=== PATIENT | male | born 2000 | race Caucasian/White ===

== ENCOUNTER 2024-08-19 09:38 | Emergency (ER) | payer OTHER ==
[~2024-08-19] VITALS: Ht 175.3 cm; Wt 80.2 kg
[2024-08-19 09:38] VITALS: TEMP 98.1
[2024-08-19 10:31] LABS: BASOPHILS # (AUTO) 0.1 X10'3 (0-0.2); BASOPHILS % (AUTO) 0.4 % (0-1); EOSINOPHILS # (AUTO) 0.7 X10'3 (0-0.9); EOSINOPHILS % (AUTO) 5.7 % (0-6); HEMATOCRIT 44.5 % (42.0-52.0); HEMOGLOBIN 14.8 g/dl (14.0-17.9); LYMPHOCYTES # (AUTO) 0.5 X10'3 (1.1-4.8); LYMPHOCYTES % (AUTO) 3.8 % (21-51); MEAN CORPUSCULAR HEMOGLOBIN 27.9 PG (27.0-31.0); MEAN CORPUSCULAR HGB CONC 33.2 g/dL (33.0-36.5); MEAN PLATELET VOLUME 9.1 FL (7.4-10.4); MONOCYTES # (AUTO) 0.7 X10'3 (0-0.9); MONOCYTES % (AUTO) 5.5 % (2-12); NEUTROPHILS # (AUTO) 11.1 X10'3 (1.8-7.7); NEUTROPHILS % (AUTO) 84.6 % (42-75); PLATELET COUNT 263 X10'3 (140-440); RED CELL DISTRIBUTION WIDTH 13.3 % (11.5-14.5); WHITE BLOOD COUNT 13.1 X10'3 (4.5-11.0)
--- NOTE | 2024-08-19 10:32 | Physician Documentation ---
History of Present Illness ~ Chief Complaint: Rash Stated Complaint: RASH Time Seen by MD: 09:54 HPI 24-year-old male presents to the ED after recently being seen at the [place] [facility] for a rash that he developed oral last 3 days. 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 Started on his arms and then spread to his legs. He was at the [place] [facility] did receive a shot of Kenalog and a prescription for prednisone 20 mg daily states that the steroids have not helped his symptoms he says actually they seem to be making things worse. That the rash is painful not itchy and has begun to weep on his lower extremities. reports that it is burning in nature Day of Onset: Aug 19, 2024 Medication Reconciliation Allergies: Coded Allergies: No Known Allergies (Unverified , 08/19/24) Scheduled Hydrocortisone/Aloe Vera (Cortizone-10 with Aloe 1% Crm), 1 APPLIC TOP TID Review of Systems All Other Systems at this time: Reviewed and Negative ROS As stated above in the HPI, otherwise all systems are reviewed and negative. Physical Exam Vital Signs: Temperature: 98.1, Source: Oral, Heart Rate: 74, Respiratory Rate: 16, BP: 128/82, Pulse Oximetry: 100, Weight: 80.200 Oxygen Flow Rate: 0 Physical Exam General: Alert, no apparent distress. Respiratory: Lungs clear, no respiratory distress. Extremities: Normal range of motion, no deformity. lower Extremities have circumferential erythema with developing bullous rash upper extremities have more diffuse erythema only on the posterior aspect of the forearms Neurologic: Oriented x4. Psychiatric: Normal mood and affect. Skin: Normal color, warm and dry. No edema, no ecchymosis. Progress Results/Orders Results/Orders Completed Orders - PRASAD COYLE NP Cbc/Diff (08/19/24 10:14) BMP (08/19/24 10:14) ESR (08/19/24 10:14) Hydrocortisone 1% Cream (Hydrocortisone (08/19/24 10:55) Medications Received in ER Medications (Trade) Dose Ordered Sig/Neeta Route PRN Reason Start Time Stop Time Status Last Admin Dose Admin (hydrocortisone 1% cream) 1 applic NOW ONCE TP 08/19/24 10:55 08/19/24 10:56 DC 6/14/25 11:23 1 APPLIC Vital Signs 08/19/24 08/19/24 08/19/24 09:38 12:18 12:19 Temp 98.1 Pulse 74 65 66 Resp 16 16 18 B/P (MAP) 128/82 124/77 (93) 127/87 Pulse Ox 100 98 98 O2 Flow Rate 0 Laboratory Tests Test 08/19/24 10:22 White Blood Count 13.1 H Red Blood Count 5.30 Hemoglobin 14.8 Hematocrit 44.5 Mean Corpuscular Volume 84.0 Mean Corpuscular Hemoglobin 27.9 Mean Corpuscular Hemoglobin Concent 33.2 Red Cell Distribution Width 13.3 Platelet Count 263 Mean Platelet Volume 9.1 Neutrophils (%) (Auto) 84.6 H Lymphocytes (%) (Auto) 3.8 L Monocytes (%) (Auto) 5.5 Eosinophils (%) (Auto) 5.7 Basophils (%) (Auto) 0.4 Neutrophils # (Auto) 11.1 H Lymphocytes # (Auto) 0.5 L Monocytes # (Auto) 0.7 Eosinophils # (Auto) 0.7 Basophils # (Auto) 0.1 CBC Comment Erythrocyte Sedimentation Rate 3 Sodium Level 143 Potassium Level 4.4 Chloride Level 107 Carbon Dioxide Level 32.5 H Anion Gap 4 L Blood Urea Nitrogen 14 Creatinine 1.17 H Estimated GFR/1.73 m2 75 BUN/Creatinine Ratio 12.0 Glucose Level 104 Calcium Level 8.7 Albumin 3.4 Chemistry Comments Medical Decision Making Findings Initially, I was suspecting contact dermatitis based on patient's presentation and history. Upper upon further evaluation I am currently suspecting of 5 to follow dermatitis secondary to the patient's job description were he is in the [place] and often slides down hills. That is some point that he came in contact with had a photo reaction causing his symptoms. Treatment for this is hydrocortisone cream 1% and cold compresses Differential Dx:Considerations: Include: Abscess, AIDS/HIV, Anthrax (cutaneous), Atopic dermatitis, Candidiasis, Contact dermatitis, Drug reaction, Erythema multiforme, Erysipelas, Gangrene, Herpes zoster, Herpes simplex, Hidradenitis suppurativa, Impetigo, Intertrigo, Lymes disease, Molluscum contagiosum, Osteomyelitis, Pediculosis, Pityriasis rosea, Psoriaisis, RMSF, Ro sacea, Scabies, Scarlet fever, Tinea, Urticaria, Varicella, Viral exanthema, Other Departure Disposition: HOME / SELF CARE / HOMELESS Impression: Primary Impression: Skin irritation Additional Impression: Phytophotodermatitis Condition: Stable Discharge Instructions: Contact Dermatitis, [id number] Additional Instructions: Utilize the hydrocortisone cream and cold compresses as your symptoms resolve Referrals: NO PRIMARY CARE PROVIDER (PCP) Prescriptions Hydrocortisone/Aloe Vera (Cortizone-10 with Aloe 1% Crm) 1 % Cream..g. 1 APPLIC TOP TID for rash for 10 Days, #1 TUBE Prov: PRASAD COYLE NP 08/19/24 Education Educated: Patient Educated regarding: diagnosis Signature Scribe Signature: m Attestation: Scribed for Prasad Coyle Fur Joiner by Prasad Diaz NP . 08/19/24 18:21 PRASAD COYLE NP Aug 19, 2024 10:32
[2024-08-19 10:43] LABS: ALBUMIN 3.4 G/DL (3.4-5.0); ANION GAP 4 (8-16); BLOOD UREA NITROGEN 14 MG/DL (7-18); CALCIUM 8.7 MG/DL (8.5-10.1); CHLORIDE 107 MMOL/L (99-107); CREATININE 1.17 MG/DL (0.60-1.10); GLUCOSE 104 MG/DL (70-104); POTASSIUM 4.4 MMOL/L (3.5-5.1); SODIUM 143 MMOL/L (135-145); TOTAL CARBON DIOXIDE 32.5 MMOL/L (24-32); eCRCL 96 ML/MIN; eGFR 75 ML/MIN
[2024-08-19] MEDS: hydrocortisone 1% cream 28gm TP ONE (11:23)
[2024-08-19] MEDS ORDERED: HYDR56CR TOP (12:10)
[2024-08-19 12:19] VITALS: BP 127/87; PULSE 66; RESP 18; O2SAT 98
== END 2024-08-19 12:21 | disposition home or self-care (01) ==
LOC: ER 09:39
DX: L56.2 Photocontact dermatitis [berloque dermatitis] (principal)
CPT/HCPCS: 36415; 80048; 85025; 85651; 99283